=== PATIENT | female | born 1995 | race African-American/Black ===

== ENCOUNTER 2018-12-09 23:10 | Emergency (ER) | payer SELFPAY ==
[~2018-12-09] VITALS: Ht 162.6 cm; Wt 43.0 kg
[2018-12-10 04:58] LABS: CLARITY URINE CLOUDY (CLEAR); COLOR URINE YELLOW (YELLOW); KETONES URINE 1+ (NEGATIVE); LEUKOCYTE ESTERASE URINE 3+ (NEGATIVE); NITRITE URINE NEGATIVE (NEGATIVE); OCCULT BLOOD URINE NEGATIVE (NEGATIVE); PH URINE 5.5 (4.5-8.0); PROTEIN URINE 1+ (NEGATIVE); SPECIFIC GRAVITY URINE 1.021 (1.005-1.030)
[2018-12-10 07:40] VITALS: BP 106/65
== END 2018-12-10 07:42 | disposition home or self-care (01) ==
LOC: ER 23:10
DX: F12.129 Cannabis abuse with intoxication, unspecified (principal); F17.210 Nicotine dependence, cigarettes, uncomplicated
CPT/HCPCS: 81003; 81025; 93005; 99284

== ENCOUNTER 2019-10-17 21:46 | Emergency (ER) | payer OTHER ==
[~2019-10-17] VITALS: Ht 175.3 cm; Wt 54.4 kg
[2019-10-17] MEDS ORDERED: SODIUM CHLORIDE 0.9% 1000ML BAG (SEPSIS BOLUS) IV ONE (22:15)
[2019-10-17 23:45] LABS: CLARITY URINE TURBID (CLEAR); COLOR URINE YELLOW (YELLOW); KETONES URINE 4+ (NEGATIVE); LEUKOCYTE ESTERASE URINE 3+ (NEGATIVE); NITRITE URINE POSITIVE (NEGATIVE); OCCULT BLOOD URINE 2+ (NEGATIVE); PH URINE 5.5 (4.5-8.0); PROTEIN URINE 2+ (NEGATIVE); SPECIFIC GRAVITY URINE 1.014 (1.005-1.030)
[2019-10-18 00:46] VITALS: BP 125/71
== END 2019-10-18 00:52 | disposition home or self-care (01) ==
LOC: ER 21:46
DX: N39.0 Urinary tract infection, site not specified (principal); Z11.59 Encounter for screening for other viral diseases
CPT/HCPCS: 71045; 81003; 81025; 87077; 87086; 87186; 99284; C9803; J7030; U0003